=== PATIENT | female | born 1970 | race Caucasian/White ===

== ENCOUNTER 2020-11-05 12:57 | Outpatient (CLI) | payer BC, SELFPAY ==
--- NOTE | 2020-11-05 13:06 | MM_ITS ---
WS: [id number] Bilateral screening digital mammogram, 11/05/2020 Clinical Data: SCREENING Comparison: 10/04/2019, 02/17/2018, 11/13/2016. Findings: The breast parenchymal pattern shows heterogeneous density No spiculated masses or clustered calcific ations are seen. There are no secondary signs of carcinoma. MM/[id number] Impression: 1. Negative bilateral mammogram unchanged. 2. Recommend annual screening mammograms. BIRADS: 1-Negative FOLLOW UP: 1 Year Follow-up The CAD loom checker was used.
== END 2020-11-05 12:58 | disposition home or self-care (01) ==
LOC: RADSHAW 13:01
PROVIDERS: PCP Internal Medicine; Visit Provider Internal Medicine
DX: Z12.31 Encounter for screening mammogram for malignant neoplasm of breast (principal)
CPT/HCPCS: 77067

== ENCOUNTER 2022-09-29 16:32 | Outpatient (CLI) | payer OTHER, SELFPAY ==
--- NOTE | 2022-09-29 17:23 | XR_ITS ---
WS: [id number] Right shoulder, 2 views, 09/29/2022 Clinical Data: PAIN IN RIGHT SHOULDER Comparison: None. Findings: No fractures or dislocations are seen. The AC joint is normal. The adjacent right clavicle, right sca pula and ribs are normal. The soft tissues are unremarkable. XR/XR shoulder RT min 2V* [id number] Impression: Negative right shoulder.
--- NOTE | 2022-09-29 17:29 | XR_ITS ---
WS: [id number] Left shoulder, 2 views, 09/29/2022 Clinical Data: LEFT SHOULDER PAIN Comparison: None. Findings: No fractures or dislocations are seen. The AC joint is normal. The adjacent left clavicle, left scapu la and ribs are normal. The soft tissues are unremarkable. There is a calcified granuloma in the left lateral lung. XR/XR shoulder LT min 2V* [id number] Impression: Negative left shoulder.
== END 2022-09-29 16:33 | disposition home or self-care (01) ==
LOC: RAD 16:47
PROVIDERS: PCP Internal Medicine; Visit Provider Internal Medicine
DX: M25.512 Pain in left shoulder (principal); M25.511 Pain in right shoulder
CPT/HCPCS: 73030

== ENCOUNTER 2022-10-21 06:00 | Outpatient (RCR) | payer OTHER, SELFPAY | END 2022-10-22 23:59 | disposition home or self-care (01) | LOC: SPT 06:00 | PROVIDERS: PCP Internal Medicine; Visit Provider Internal Medicine | DX: M25.512 Pain in left shoulder (principal); M25.511 Pain in right shoulder | CPT/HCPCS: 97110; 97162 ==

== ENCOUNTER 2022-10-23 06:00 | Outpatient (RCR) | payer OTHER, SELFPAY | END 2022-11-22 23:59 | disposition home or self-care (01) | LOC: SPT 06:00 | PROVIDERS: PCP Internal Medicine; Visit Provider Internal Medicine | DX: M25.512 Pain in left shoulder (principal); M25.511 Pain in right shoulder | CPT/HCPCS: 97110 ==

== ENCOUNTER 2022-11-23 06:00 | Outpatient (RCR) | payer OTHER, SELFPAY | END 2022-12-23 23:59 | disposition home or self-care (01) | LOC: SPT 06:00 | PROVIDERS: PCP Internal Medicine; Visit Provider Internal Medicine | DX: M25.512 Pain in left shoulder (principal); M25.511 Pain in right shoulder | CPT/HCPCS: 97110 ==